=== PATIENT | female | born 1960 | race African-American/Black ===

== ENCOUNTER 2019-03-02 09:55 | Emergency (ER) | payer MEDICAID, OTHER ==
[~2019-03-02] VITALS: Ht 180.3 cm; Wt 74.8 kg
[2019-03-02 10:04] VITALS: BP 160/91
--- NOTE | 2019-03-02 10:05 | NUR ---
[employer], c/o upper back and BLE pain s/p fall 2 months ago per patient. Will continue to monitor accordingly.
[2019-03-02] MEDS ORDERED: IBUPROFEN 400 MG TABLET ONE (10:12)
--- NOTE | 2019-03-02 10:15 | NUR ---
Patient discharged in custody in stable condition. Written and verbal after care instructions given. Patient verbalizes understanding of instruction.
[2019-03-02] MEDS ORDERED: IBUPROFEN 400 MG TABLET PO ONE (10:30)
== END 2019-03-02 10:16 ==
LOC: ER 09:57
DX: S50.11XA Contusion of right forearm, initial encounter (principal); I10 Essential (primary) hypertension; E11.9 Type 2 diabetes mellitus without complications; Z02.89 Encounter for other administrative examinations; Y08.89XA Assault by other specified means, initial encounter; Y93.89 Activity, other specified; Y92.89 Other specified places as the place of occurrence of the external cause; Y99.8 Other external cause status

== ENCOUNTER 2019-04-06 10:08 | Emergency (ER) | payer MEDICAID, OTHER ==
[~2019-04-06] VITALS: Ht 180.3 cm; Wt 74.8 kg
--- NOTE | 2019-04-06 10:30 | NUR ---
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 on room air, breathing evenly and unlabored. connected to the monitor and pulse ox. kept comfortable, will continue to monitor accordingly.
[2019-04-06] MEDS ORDERED: LORAZEPAM 1 MG TABLET ONE (10:42)
[2019-04-06] MEDS ORDERED: OLANZAPINE 10 MG VIAL IM ONE (10:42)
[2019-04-06] MEDS: OLANZAPINE 10 MG VIAL IM ONE (10:45)
[2019-04-06] MEDS: LORAZEPAM 1 MG TABLET PO ONE (10:45)
[2019-04-06 10:55] LABS: BASOPHILS # (AUTO) 0.1 /CMM (0.0-0.2); BASOPHILS % (AUTO) 0.9 % (0.0-2.0); EOSINOPHILS % (AUTO) 2.5 % (0.0-6.0); HEMATOCRIT 36 % (33-45); LYMPHOCYTES # (AUTO) 1.9 /CMM (0.8-4.8); LYMPHOCYTES % (AUTO) 26.2 % (20.0-44.0); MEAN CORPUSCULAR HGB CONC 33 g/dl (31.0-36.0); MEAN CORPUSCULAR VOLUME 84 fL (82-100); MONOCYTES # (AUTO) 0.4 /CMM (0.1-1.30); MONOCYTES % (AUTO) 5.7 % (2.0-12.0); NEUTROPHILS # (AUTO) 4.7 /CMM (1.8-8.9); NEUTROPHILS % (AUTO) 64.7 % (43.0-81.0); PLATELET COUNT (AUTO) 237 /CMM (150-450); RED BLOOD CELL COUNT(AUTO) 4.32 MIL/uL (4.0-5.2); WHITE BLOOD COUNT (AUTO) 7.2 K/uL (4.3-11.0)
[2019-04-06 11:03] LABS: CALCIUM, SERUM 9.7 mg/dL (8.5-10.1); CARBON DIOXIDE 29 mmol/L (21-32); CHLORIDE 104 mmol/L (98-107); CREATININE 0.8 mg/dL (0.6-1.3); GLUCOSE 155 mg/dL (74-106); POTASSIUM 3.4 mmol/L (3.5-5.1); SODIUM SERUM 141 mmol/L (136-145); UREA NITROGEN, BLOOD 25 mg/dL (7-18)
[2019-04-06 11:08] LABS: ALANINE AMINOTRANSFERASE 22 U/L (12-78); ALBUMIN 3.5 g/dL (3.4-5.0); ALCOHOL, BLOOD < 3 mg/dL (0-0); ALKALINE PHOSPHATASE 90 U/L (46-116); ASPARTATE AMINOTRANSFERASE 19 U/L (15-37); BILIRUBIN,DIRECT 0.1 mg/dL (0.0-0.2); BILIRUBIN,TOTAL 0.6 mg/dL (0.2-1.0); TOTAL PROTEIN, SERUM 7.2 g/dL (6.4-8.2)
[2019-04-06 11:09] LABS: ACETAMINOPHEN 0 ug/ml (10-30); SALICYLATE 2.1 mg/dL (2.8-20.0)
[2019-04-06 11:53] LABS: BILIRUBIN,URINE Negative (NEGATIVE); BLOOD, URINE Trace-lysed Ery/uL (NEGATIVE); COLOR,URINE Yellow (YELLOW); KETONES,URINE Negative (NEGATIVE); LEUKOCYTE ESTERASE ,URINE Negative (NEGATIVE); NITRITE, URINE Negative (NEGATIVE); PROTEIN,URINE >=300 mg/dl (NEGATIVE); UGLUCOSE 100 MG/DL mg/dL (NEGATIVE); UROBILINOGEN,URINE 0.2 EU/dL (0.2)
[2019-04-06 11:55] LABS: APPEARANCE,URINE SLIGHTLY CLOUDY (CLEAR)
[2019-04-06 12:01] LABS: BACTERIA,URINE None seen /HPF (None Seen); SQUAMOUS EPITHELIAL CELL,UR Few /HPF (None Seen)
--- NOTE | 2019-04-06 21:21 | NUR ---
WAITING TO GO TO [facility] WAITING FOR BED
--- NOTE | 2019-04-06 21:51 | NUR ---
TOOK OVER PT CARE. PT chaim and , from home, got evicted and got agitated, on 5150 hold. GOING TO [facility]. NO ACUTE DISTRES NOTED. VSS. SLEEPING COMFORTABLY.
--- NOTE | 2019-04-06 23:31 | NUR ---
CALLED [facility] FOR UPDATE, STATES WILL CALL IF THERE IS A BED AVAILABLE.
--- NOTE | 2019-04-06 23:35 | NUR ---
CALLED [facility], PER CM NO BEDS AVAILABLE PRESENTLY
--- NOTE | 2019-04-07 05:40 | NUR ---
called [facility] intake and asked for bed. no bed available at this time.
--- NOTE | 2019-04-07 05:42 | NUR ---
CALLED [facility] INTAKE AND ASKED ABOUT ANY POSSIBLE BED AVAILABLE FOR THE PT. THEY WILL CALL US BACK AFTER 0600. WILL F/U
--- NOTE | 2019-04-07 06:41 | NUR ---
Alonso bardales in [facility] - 04/07/[address] COREY ON THE PHONE WITH DR. HERNANDEZ FROM [facility].
--- NOTE | 2019-04-07 08:50 | NUR ---
FAXED CLINICALS, FACESHEET, AND HOLD TO [facility] TO ASSIST WITH PLACEMENT OF PT. WILL CALL BACK WHEN RECIEVING INFORMATION ON PT.
--- NOTE | 2019-04-07 09:12 | NUR ---
[facility] CALLED AND THEY RECIEVED INFORMATION AND WILL LOOK FOR PLACEMENT.
--- NOTE | 2019-04-07 10:24 | NUR ---
received a call from [facility] and report given.
--- NOTE | 2019-04-07 10:43 | NUR ---
GOT A CALL FROM [facility]. PT WAS ACC[facility]. ACCEPTING IS DR. FLORES. NUMBER FOR REPORT IS [phone].
--- NOTE | 2019-04-07 10:56 | NUR ---
CALLED [facility] FOR TRANSPORT TO [facility]. ETA [phone].
[2019-04-07] MEDS ORDERED: NIFEdipine (10MG) 10 MG CAPSULE ONE (11:24)
--- NOTE | 2019-04-07 11:51 | NUR ---
CHIEF DIVERSITY OFFICER received a call from APS SW Sommer Ceja informing CHIEF DIVERSITY OFFICER that she was present yesterday at pt's home with [employer] when pt. was evicted from her home. Per Sommer, pt is homeless as of yesterday. Sommer reports that pt is unable to manager trade marketing her SSI money and therefore got evicted for not paying rent. CHIEF DIVERSITY OFFICER informed Sommer that pt. is being transferred to [facility] for continuing psychiatric care. [facility] gave Sommer contact number to [facility] for follow up.
[2019-04-07] MEDS: NIFEdipine (10MG) 10 MG CAPSULE PO ONE (11:57)
[2019-04-07 12:21] VITALS: BP 161/90
--- NOTE | 2019-04-07 12:25 | NUR ---
patient picked up by private ambulance in no distress, accompanied by 2 emt. Denies any pain or discomfort, nor chest pain.
== END 2019-04-07 12:25 | disposition short-term general hospital (02) ==
LOC: ER 10:09
DX: R45.1 Restlessness and agitation (principal); E11.9 Type 2 diabetes mellitus without complications; I10 Essential (primary) hypertension; Z86.73 Personal history of transient ischemic attack (TIA), and cerebral infarction without residual deficits; Z91.89 Other specified personal risk factors, not elsewhere classified
CPT/HCPCS: 36415; 80048; 80076; 80305; 80307; 80329; 81001; 85025; 96372; 99285; G0480; J3490; 81000-TC

== ENCOUNTER 2019-07-01 09:48 | Emergency (ER) | payer MEDICAID, OTHER ==
[~2019-07-01] VITALS: Ht 177.8 cm; Wt 90.7 kg
--- NOTE | 2019-07-01 10:00 | NUR ---
PT BIB [employer] [place] [facility] "SHE GOT RELEASED STARTED ACTING OUT SCREAMING AND AGGRSSIVE TOWARDS OFFICERS" PT IS AAOX3, NOT IN RESPIRATORY DISTRESS, HOOKED TO MONITOR, KEPT RESTED AND COMFORTABLE, WILL CONTINUE TO MONITOR.
--- NOTE | 2019-07-01 10:03 | NUR ---
AT BEDSIDE FOR EVAL.
[2019-07-01] MEDS ORDERED: LEVETIRACETAM (250 MG) 250 MG TABLET PO ONE ×2 (10:10→10:30)
--- NOTE | 2019-07-01 10:20 | NUR ---
ER PHLEB AT BEDSIDE FOR BLOOD DRAW.
[2019-07-01 10:31] LABS: BASOPHILS # (AUTO) 0.1 /CMM (0.0-0.2); BASOPHILS % (AUTO) 0.9 % (0.0-2.0); EOSINOPHILS % (AUTO) 2.1 % (0.0-6.0); HEMATOCRIT 35 % (33-45); HEMOGLOBIN 11.3 g/dL (11.5-14.8); LYMPHOCYTES # (AUTO) 1.8 /CMM (0.8-4.8); LYMPHOCYTES % (AUTO) 21.4 % (20.0-44.0); MEAN CORPUSCULAR HGB CONC 33 g/dl (31.0-36.0); MEAN CORPUSCULAR VOLUME 86 fL (82-100); MONOCYTES # (AUTO) 0.5 /CMM (0.1-1.30); MONOCYTES % (AUTO) 5.8 % (2.0-12.0); NEUTROPHILS # (AUTO) 5.8 /CMM (1.8-8.9); NEUTROPHILS % (AUTO) 69.8 % (43.0-81.0); PLATELET COUNT (AUTO) 238 /CMM (150-450); RED BLOOD CELL COUNT(AUTO) 4.04 MIL/uL (4.0-5.2); WHITE BLOOD COUNT (AUTO) 8.3 K/uL (4.3-11.0)
--- NOTE | 2019-07-01 10:35 | NUR ---
INTAKE MAN AT BED SIDE FOR XRAY.
[2019-07-01 10:39] LABS: CALCIUM, SERUM 8.8 mg/dL (8.5-10.1); CARBON DIOXIDE 32 mmol/L (21-32); CHLORIDE 102 mmol/L (98-107); CREATININE 0.9 mg/dL (0.6-1.3); GLUCOSE 258 mg/dL (74-106); SODIUM SERUM 138 mmol/L (136-145); UREA NITROGEN, BLOOD 19 mg/dL (7-18)
--- NOTE | 2019-07-01 10:40 | NUR ---
INDUSTRIAL PLANT CUSTODIAN AT BEDSIDE.
[2019-07-01 10:44] LABS: ALANINE AMINOTRANSFERASE 36 U/L (12-78); ALBUMIN 2.8 g/dL (3.4-5.0); ALCOHOL, BLOOD < 3 mg/dL (0-0); ALKALINE PHOSPHATASE 91 U/L (46-116); ASPARTATE AMINOTRANSFERASE 22 U/L (15-37); BILIRUBIN,DIRECT 0.1 mg/dL (0.0-0.2); BILIRUBIN,TOTAL 0.4 mg/dL (0.2-1.0); TOTAL PROTEIN, SERUM 6.3 g/dL (6.4-8.2)
[2019-07-01 11:20] VITALS: BP 139/91
--- NOTE | 2019-07-01 11:31 | NUR ---
SW Consult NATALI was consulted by Emergency Department staff for the pt due to homelessness. SW met with the pt at emergency department bedside and assessed the pt. Pt appeared to be alert and oriented x4 (time, place, self and situation). Pt appeared to be disheveled, ungroomed, and malodorous. Pt appeared to be in a depressed mood and presented with an irritated affect. Pt denied both suicidal and homicidal ideation as well as auditory and visual hallucinations. Pt stated that she is suffering from strokes and seizures but the SW spoke to the pts MD and he stated that she was medically cleared. Pt stated that she is homeless because she was kicked out of her apartment. Pt stated that she wanted to be placed in an Assisted Living but was unable to inform the SW about her finances. NATALI consulted with her electrical tests supervisor, Eliana Hagen LCSW, regarding this case due to her medical conditions. Due to the pt being medically cleared and due to the pt not meeting inpatient criteria, pt will be discharged to a homeless mcc. NATALI provided the pt with homeless resources that included homeless shelters, mental health/medical clinics, hot showers, food allen, and substance abuse referrals. SW spoke to the pt about how she would be able to go to [facility] with the TAP card provided. Pt refused to sign the homeless waiver because she stated that she wanted to be discharged to an Assisted Living. Nursing staff will follow through with the pts discharge.
--- NOTE | 2019-07-01 11:34 | NUR ---
PT REFUSED TO BE DISCHARGED, CALLED SECURITY AT BEDSIDE, PT STARTED SCREAMING AND REFUSED TO SIGN DISCHARGE PAPERS.
--- NOTE | 2019-07-01 11:34 | NUR ---
Patient given written and verbal discharge instructions.Patient is ambulatory with steady gait. Refuses offer of penitentiary placement. Patient given list of available shelters in surrounding area.
== END 2019-07-01 11:37 | disposition home or self-care (01) ==
LOC: ER 09:54
DX: R56.9 Unspecified convulsions (principal); I10 Essential (primary) hypertension; E11.9 Type 2 diabetes mellitus without complications; Z59.0 Homelessness; Z86.73 Personal history of transient ischemic attack (TIA), and cerebral infarction without residual deficits
CPT/HCPCS: 36415; 71045-TC; 80048-TC; 80076-TC; 85025-TC; G0480